=== PATIENT | male | born 1930 | race Caucasian/White ===

== ENCOUNTER → 2016-08-14 | Outpatient (CLI) | payer MEDICARE, BC ==
[2016-08-14 08:32] LABS: Basophils % (A) 1 %; CH 28.5; CHCM 32.1; Eosinophils # (A) 0.3 k/uL (0-0.7); Eosinophils % (A) 7 %; HCT 44.8 % (39.0-53.0); HDW 2.66; HGB 14.6 gm/dL (13.0-17.5); Luc # (Auto) 0.17; Luc % (Auto) 4; Lymphocytes # (A) 1.1 k/uL (1.0-4.8); Lymphocytes % (A) 23 %; MCHC 32.5 g/dL (31.0-37.0); MCV 89.1 fL (80.0-100.0); Mean Platelet Volume 6.4; Monocytes # (A) 0.4 k/uL (0-1.0); Monocytes % (A) 8 %; Neutrophils # (A) 2.7 k/uL (1.3-7.7); Neutrophils % (A) 58 %; RBC 5.02 m/uL (4.30-5.90); RDW 13.1 % (11.5-15.5); WBC 4.6 k/uL (3.8-10.6); WBC (Perox) 4.64
[2016-08-14 08:46] LABS: ALT 31 U/L (21-72); AST 29 U/L (17-59); Alkaline Phosphatase 66 U/L (38-126); Anion Gap 12 mmol/L; Blood Urea Nitrogen 25 mg/dL (9-20); Calcium 9.4 mg/dL (8.4-10.2); Carbon Dioxide 24 mmol/L (22-30); Chloride 107 mmol/L (98-107); Cholesterol 163 mg/dL (<200); Glucose 97 mg/dL (74-99); HDL Cholesterol 39 mg/dL (40-60); Non-African American GFR(MDRD) >60 (>60 ml/min/1.73 sqM); Potassium 4.3 mmol/L (3.5-5.1); Sodium 143 mmol/L (137-145); Total Bilirubin 1.2 mg/dL (0.2-1.3); Total Protein 7.4 g/dL (6.3-8.2); Triglycerides 112 mg/dL (<150)
== END | disposition home or self-care (01) ==
LOC: LABWHC1 07:25
PROVIDERS: ATTEND Internal Medicine
DX: E78.5 Hyperlipidemia, unspecified (principal); I10 Essential (primary) hypertension
CPT/HCPCS: 36415; 80053; 80061; 84439; 84443; 85025

== ENCOUNTER → 2016-12-13 | Outpatient (CLI) | payer MEDICARE, BC ==
[2016-12-13 10:09] LABS: CH 29.1; CHCM 31.8; HCT 46.5 % (39.0-53.0); HDW 2.43; HGB 14.3 gm/dL (13.0-17.5); MCH 28.3 pg (25.0-35.0); MCHC 30.8 g/dL (31.0-37.0); RBC 5.05 m/uL (4.30-5.90); RDW 14.5 % (11.5-15.5); WBC 4.6 k/uL (3.8-10.6)
[2016-12-13 10:37] LABS: Anion Gap 10 mmol/L; Blood Urea Nitrogen 24 mg/dL (9-20); Carbon Dioxide 23 mmol/L (22-30); Chloride 107 mmol/L (98-107); Non-African American GFR(MDRD) >60 (>60 ml/min/1.73 sqM); Potassium 4.2 mmol/L (3.5-5.1); Sodium 140 mmol/L (137-145)
== END | disposition home or self-care (01) ==
LOC: LABWHC1 09:36
PROVIDERS: ATTEND Internal Medicine Cardiovascular Disease
DX: Z01.812 Encounter for preprocedural laboratory examination (principal); I34.0 Nonrheumatic mitral (valve) insufficiency
CPT/HCPCS: 36415; 80051; 82565; 84520; 85027

== ENCOUNTER 2016-12-21 06:05 | Day surgery (SDC) | payer MEDICARE, BC ==
[2016-12-21] MEDS ORDERED: ALPRAZolam 0.25 MG TAB PO PRN (06:14)
[2016-12-21] MEDS ORDERED: ATORVASTATIN 80 MG TAB PO STA (06:14)
[2016-12-21] MEDS ORDERED: SODIUM CHLORIDE 0.9% 1,000 ML in EMPTY BAG 1 BAG IV ONE ×2 (06:14→15:02)
[2016-12-21] MEDS ORDERED: NITROGLYCERIN SL TABS 0.4 MG TAB SUBLINGUAL PRN (06:14)
[2016-12-21] MEDS ORDERED: ALPRAZolam 0.5 MG TAB PO PRN (06:14)
[2016-12-21] MEDS: BENZOCAINE SPRAY 1 SPRAY CAN MUCOUS MEM ONE ×2 (07:02→07:10)
[2016-12-21] MEDS ORDERED: fentaNYL (PF) 50 MCG/ML 2 ML AMP IVP ONE (07:10)
[2016-12-21] MEDS ORDERED: MIDAZOLAM 2 MG/2 ML VIAL IVP ONE (07:10)
[2016-12-21] MEDS ORDERED: LIDOCAINE 2% INJ 20 MG/ML SQ ONE (07:39)
[2016-12-21] MEDS ORDERED: SODIUM CHLORIDE 0.9% 1,000 ML IV ONE (07:42)
[2016-12-21] MEDS ORDERED: IOHEXOL 350 MG/ML 125ML BOTTLE INJ ONE (07:54)
[2016-12-21] MEDS ORDERED: RX INFO: IV CONTRAST WAS GIVEN 1 EACH MISC MISCELLANE PRN (08:04)
[2016-12-21] MEDS ORDERED: ATENOLOL 25 MG TAB PO SCH (10:15)
[2016-12-21] MEDS ORDERED: ISOSORBIDE MONONITRATE ER 30 MG TAB.ER.24H PO SCH (10:15)
[2016-12-21] MEDS ORDERED: ISOSORBIDE MONONITRATE ER 30 MG TAB.ER.24H PO STA (10:45)
[2016-12-21] MEDS ORDERED: ATENOLOL 25 MG TAB PO STA (10:46)
[2016-12-21 10:56] LABS: Potassium 4.2 mmol/L (3.5-5.1)
--- NOTE | 2016-12-21 11:31 | P.GSCN ---
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 Scruggs as his primary care physician with a known history of mitral valve regurgitation presented [facility] for increasing shortness of breath and chest pain. He described the chest pain as tightness which was localized to the center of his chest without any radiation, nausea, diaphoresis, or syncope. He states this chest pain would go away on its own, sometimes after belching. The shortness of breath episodes are intermittent, and tend to resolve on their own when patient rests. He states the increasing shortness of breath has started to limit his activity, previously he was a very active gentleman. He was recommended to undergo stress test and echocardiogram. His stress test was abnormal with demonstration of inferior wall [place] with mild LV dysfunction. His echocardiogram demonstrated moderate mitral regurgitation. He was recommended to undergo heart catheterization and transesophageal echocardiogram which he had this morning. Heart catheterization revealed a lesion in the LAD of approximately 70-80% stenosis. His LÓPEZ did demonstrate moderate mitral regurgitation with a flail P2 leaflet. Dr. Diaz was consulted for his recommendation of surgery versus stent and mitral clipping. Review of Systems 14 point review systems was completed and was negative except as noted. - Cardiovascular Reports as per HPI, Reports chest pain, Reports dyspnea on exertion, Reports shortness of breath - Respiratory Reports as per HPI, Reports dyspnea Past Medical History Past Medical History: Deep Vein Thrombosis (DVT), GERD/Reflux, Hyperlipidemia, Pulmonary Embolus (PE) Additional Past Medical History / Comment(s): HX of DVT leg & PE 2004 History of Any Multi-Drug Resistant Organisms: None Reported Past Surgical History: Appendectomy, Hernia Repair, Prostate Surgery Additional Past Surgical History / Comment(s): Hernia repair x4; Colonoscopy Past Anesthesia/Blood Transfusion Reactions: No Reported Reaction Smoking Status: Never smoker Past Alcohol Use History: None Reported Past Drug Use History: None Reported - Past Family History Mother Family Medical History: No Reported History Medications and Allergies Home Medications Medication Instructions Recorded Confirmed Type Finasteride [Proscar] 5 mg PO DAILY 12/19/16 12/21/16 History Gemfibrozil [Lopid] 600 mg PO AC-BID 12/19/16 12/21/16 History Lansoprazole [Prevacid] 30 mg PO DAILY 12/19/16 12/21/16 History Tamsulosin HCl [Flomax] 0.4 mg PO DAILY 12/19/16 12/21/16 History Allergies Allergy/AdvReac Type Severity Reaction Status Date / Time aspirin AdvReac Nausea Verified 12/19/16 13:50 Surgical - Exam Vital Signs Temp Pulse Resp BP Pulse Ox 98.3 F 64 20 140/65 98 12/21/16 06:35 12/21/16 06:35 12/21/16 06:35 12/21/16 06:35 12/21/16 06:35 - General well developed, well nourished, no distress, no pain - ENT decreased hearing - Neck no masses, no bruits, trachea midline - Respiratory Currently on room air saturation 96%. Respirations even, nonlabored. normal expansion, normal respiratory effort, clear to auscultation - Cardiovascular Normal sinus rhythm on telemetry. Palpable pulses bilaterally. No edema present. Patient does have varicosities in bilateral lower extremities. Rhythm: regular Heart Sounds: normal: S1, S2 - Abdomen Abdomen: soft, non tender, bowel sounds - Genitourinary Deferred - Rectum Deferred - Integumentary no rash - Neurologic normal coordination, normal sensation - Psychiatric oriented to time, oriented to person, oriented to place, speech is normal, memory intact Results - Labs 12/21/16 10:32 Diabetes panel 12/21/16 Range/Units 10:32 Potassium 4.2 (3.5-5.1) mmol/L Pituitary panel 12/21/16 Range/Units 10:32 Potassium 4.2 (3.5-5.1) mmol/L Adrenal panel 12/21/16 Range/Units 10:32 Potassium 4.2 (3.5-5.1) mmol/L Assessment and Plan (1) Hyperlipidemia Status: Acute (2) Moderate mitral regurgitation Status: Acute (3) Single vessel coronary artery disease Status: Acute (4) History of DVT (deep vein thrombosis) Status: Acute (5) History of pulmonary embolism Status: Acute Plan: The patient was seen and examined at the bedside with family present. Chart/ diagnostics were reviewed. The case was discussed with Dr. Diaz. Discussion was had with the patient and his family regarding the options of open heart surgery to fix his mitral valve and bypass his LAD versus stenting the LAD and sending the patient for mitral valve clipping. Questions were answered. The patient was like to think about it and discuss with his family before making a decision. A follow-up appointment will be made with Dr. Diaz for further discussion and planning. Thank you Dr. Stout for this consult. We look forward to working with you in the care of your patient. If there are any questions please do not hesitate to contact us. Time with Patient: Greater than 30 <Pablo Diaz R - Last Filed: 12/22/16 08:20> Surgical - Exam Vital Signs Temp Pulse Resp BP Pulse Ox 98.3 F 64 20 140/65 98 12/21/16 06:35 12/21/16 06:35 12/21/16 06:35 12/21/16 06:35 12/21/16 06:35 Results - Labs 12/22/16 05:57 12/22/16 05:57 Abnormal Lab Results - Last 24 Hours (Table) 12/22/16 12/22/16 Range/Units 05:57 05:57 RBC 4.29 L (4.30-5.90) m/uL Hgb 12.4 L (13.0-17.5) gm/dL Hct 38.3 L (39.0-53.0) % Lymphocytes # 0.9 L (1.0-4.8) k/uL Chloride 109 H (98-107) mmol/L BUN 22 H (9-20) mg/dL Diabetes panel 12/21/16 12/22/16 Range/Units 10:32 05:57 Sodium 141 (137-145) mmol/L Potassium 4.2 4.0 (3.5-5.1) mmol/L Chloride 109 H (98-107) mmol/L Carbon Dioxide 23 (22-30) mmol/L BUN 22 H (9-20) mg/dL Creatinine 0.83 (0.66-1.25) mg/dL Glucose 89 (74-99) mg/dL Calcium 8.7 (8.4-10.2) mg/dL Calcium panel 12/22/16 Range/Units 05:57 Calcium 8.7 (8.4-10.2) mg/dL Pituitary panel 12/21/16 12/22/16 Range/Units 10:32 05:57 Sodium 141 (137-145) mmol/L Potassium 4.2 4.0 (3.5-5.1) mmol/L Chloride 109 H (98-107) mmol/L Carbon Dioxide 23 (22-30) mmol/L BUN 22 H (9-20) mg/dL Creatinine 0.83 (0.66-1.25) mg/dL Glucose 89 (74-99) mg/dL Calcium 8.7 (8.4-10.2) mg/dL Adrenal panel 12/21/16 12/22/16 Range/Units 10:32 05:57 Sodium 141 (137-145) mmol/L Potassium 4.2 4.0 (3.5-5.1) mmol/L Chloride 109 H (98-107) mmol/L Carbon Dioxide 23 (22-30) mmol/L BUN 22 H (9-20) mg/dL Creatinine 0.83 (0.66-1.25) mg/dL Glucose 89 (74-99) mg/dL Calcium 8.7 (8.4-10.2) mg/dL Assessment and Plan Plan: Films reviewed with Dr. Stout. Patient examined and chart reviewed. Agree with evaluation and assessment as documented by [facility]INE DEPUT[facility]. Met with patient, and son and had long discussion on options for treatment. Standard of care would be Mitral Valve Repair with CABG (WASHBURN to LAD ). Alternative treatment would be stenting of LAD with subsequent evaluation for mitral clip repair of mitral valve. After protracted discussion and thought, patient has decided to proceed with stenting of LAD and then review options based on clinical response. Discussed patient decisions with Dr. Stout.
--- NOTE | 2016-12-21 13:52 | P.TEE ---
Indications for Procedure(s): Date of Procedure: 12/21/16 Preoperative Diagnosis: Mitral regurgitation Postoperative Diagnosis: Severe mitral regurgitation Procedure(s) Performed: After obtaining informe transesophageal echocard in left lateral position using an Omnipaque prob. Local and IV sedati using Xylocaine spray 2 mg of Versed and 25 g of fentan. Total conscious sedation time was 15 minutes. Patient tolerated the without any obviousimmediate complications. Description of Procedure(s): Mitral valve shows flail posterior leaflet with Severe anteriorly directedmitral regurgitation. There is systolic flow reversal within the pulmonary vein Aortic valve is a 3 odalis there is no evidence of aortic stenosis or regurgitation. Mild tricuspid regurgita Left ventricle appears dilated with ejection fraction [id number] Left atrium appears enlarged Right atrium and right ventricle Appear within normal limits Part 2 shows moderate ath There is no evidence of [id number] shuntwith color flow Doppler or right to left shunt with saline contrast study Conclusions: Severe mitral regurgitation secondary to flail posterior mitral Ejection fraction of 50-55% .
--- NOTE | 2016-12-21 13:58 | P.OP ---
Date of Procedure: 12/21/16 Preoperative Diagnosis: Unstable angina Mitral regurgitation Postoperative Diagnosis: Coronary artery disease Mitral regurgitation Procedure(s) Performed: Implants: Anesthesia: MAC (Conscious sedation time 15 minutes) Indications for Procedure: Unstable angina Mitral regurgitation Operative Findings: Left ventricle end-diastolic pressure is 14 mm. tthere is no gradient acros Left ventricle appears dilated and shows severe mitral regurgitatio Angiographic data; Left main coronary preeti and is free of stenosis. Left anterior descending shows 70-80% stenosisin the proximal part. Circumflex coronary preeti is free of stenosis Right coronary artery is a large dominant ves and is free of stenosis Conclusions: 1. Severe mitral regurgita 2. Single-vessel coronary Plan: I have consulted cardiothoracic sx for mitral valve repairand bypass surgery if patient is going to have mitral valve clip he will first have angioplasty of the LAD. Description of Procedure: After obtaining informed con left heart catheterization coronary angiogram and LV gram performed where the right femoral a using standard Subhash catheters Patient tolerated the without obvious immediate altercations. A femoral angiogram was and Angio-Seal was dep for hemostasis
[2016-12-21] MEDS: CLOPIDOGREL 75 MG TAB PO SCH (15:14)
[2016-12-21 17:55] VITALS: BMI 29.8
[2016-12-21] MEDS: ASPIRIN 325 MG TAB PO STA (18:17)
[2016-12-21] MEDS: GEMFIBROZIL 600 MG TAB PO SCH (18:29)
[2016-12-21] MEDS: SODIUM CHLORIDE 0.9% 1,000 ML IV SCH ×2 (18:29→19:48)
[2016-12-21] MEDS: ATORVASTATIN 80 MG TAB PO STA (18:32)
[2016-12-21] MEDS: TAMSULOSIN 0.4 MG CAP.ER.24H PO SCH (20:34)
[2016-12-21] MEDS: FINASTERIDE 5 MG TAB PO SCH (20:34)
[2016-12-22 05:54] LABS: Glucose,Whole Blood 96 mg/dL (75-99)
[2016-12-22] MEDS: CLOPIDOGREL 75 MG TAB PO SCH (06:04)
[2016-12-22] MEDS: PANTOPRAZOLE 40 MG TABLET PO SCH (06:04)
[2016-12-22] MEDS ORDERED: ATORVASTATIN 80 MG TAB PO STA (06:08)
[2016-12-22] MEDS ORDERED: ASPIRIN 325 MG TAB PO STA (06:08)
[2016-12-22] MEDS: ASPIRIN 325 MG TAB PO STA (06:09)
[2016-12-22] MEDS: ATORVASTATIN 80 MG TAB PO STA (06:09)
[2016-12-22 06:41] LABS: Basophils % (A) 1 %; CH 29.3; Eosinophils # (A) 0.2 k/uL (0-0.7); Eosinophils % (A) 3 %; HCT 38.3 % (39.0-53.0); HDW 2.52; HGB 12.4 gm/dL (13.0-17.5); Luc % (Auto) 2; Lymphocytes # (A) 0.9 k/uL (1.0-4.8); Lymphocytes % (A) 16 %; MCH 28.9 pg (25.0-35.0); MCHC 32.3 g/dL (31.0-37.0); MCV 89.3 fL (80.0-100.0); Mean Platelet Volume 6.9; Monocytes # (A) 0.3 k/uL (0-1.0); Monocytes % (A) 6 %; Neutrophils % (A) 73 %; RBC 4.29 m/uL (4.30-5.90); RDW 14.5 % (11.5-15.5); WBC 5.5 k/uL (3.8-10.6); WBC (Perox) 5.58
[2016-12-22 06:55] LABS: Anion Gap 9 mmol/L; Blood Urea Nitrogen 22 mg/dL (9-20); Calcium 8.7 mg/dL (8.4-10.2); Carbon Dioxide 23 mmol/L (22-30); Chloride 109 mmol/L (98-107); Glucose 89 mg/dL (74-99); Non-African American GFR(MDRD) >60 (>60 ml/min/1.73 sqM); Sodium 141 mmol/L (137-145)
[2016-12-22] MEDS ORDERED: LIDOCAINE 2% INJ 20 MG/ML (20 ML MDV) ONE (07:10)
[2016-12-22] MEDS ORDERED: fentaNYL (PF) 50 MCG/ML 2 ML AMP ONE (07:18)
[2016-12-22] MEDS ORDERED: diphenhydrAMINE 50 MG/ML 1 ML VIAL ONE (07:18)
[2016-12-22] MEDS ORDERED: VERAPAMIL 2.5 MG/ML 2 ML AMP ONE (07:24)
[2016-12-22] MEDS ORDERED: SODIUM CHLORIDE 0.9% 1,000 ML IV ONE ×2 (07:30→08:10)
[2016-12-22] MEDS ORDERED: SODIUM CHLORIDE 0.9% 500 ML IV ONE ×2 (07:30→08:10)
[2016-12-22] MEDS ORDERED: diphenhydrAMINE 50 MG/ML 1 ML VIAL IVP ONE (08:09)
[2016-12-22] MEDS ORDERED: fentaNYL (PF) 50 MCG/ML 2 ML AMP IV ONE (08:09)
[2016-12-22] MEDS ORDERED: CLOPIDOGREL 75 MG TAB ONE (08:09)
[2016-12-22] MEDS ORDERED: BIVALIRUDIN BOLUS 250 MG/50 ML IV ONE (08:10)
[2016-12-22] MEDS ORDERED: BIVALIRUDIN 250 MG in SODIUM CHLORIDE 0.9% 50 ML IV ONE (08:11)
[2016-12-22] MEDS ORDERED: CLOPIDOGREL 75 MG TAB PO ONE (08:16)
[2016-12-22] MEDS ORDERED: NITROGLYCERIN 1000MCG/10ML SYRINGE INTRACORON ONE (08:18)
[2016-12-22] MEDS ORDERED: IOHEXOL 350 MG/ML 125ML BOTTLE INJ ONE (08:30)
[2016-12-22] MEDS ORDERED: ZOLPIDEM 5 MG TAB PO PRN (08:36)
[2016-12-22] MEDS ORDERED: MAG HYDROX/AL HYDROX/SIMETH 30 ML CUP PO PRN (08:36)
[2016-12-22] MEDS ORDERED: NITROGLYCERIN SL TABS 0.4 MG TAB SUBLINGUAL PRN (08:36)
[2016-12-22] MEDS ORDERED: RX INFO: IV CONTRAST WAS GIVEN 1 EACH MISC MISCELLANE PRN (08:36)
[2016-12-22] MEDS ORDERED: ATROPINE SULFATE 0.1 MG/ML 10ML SYRINGE IV PRN (08:36)
[2016-12-22] MEDS ORDERED: SODIUM CHLORIDE 0.9% 1,000 ML IV SCH (08:45)
[2016-12-22] MEDS: SODIUM CHLORIDE 0.9% 1,000 ML IV SCH (09:37)
[2016-12-22] MEDS: FINASTERIDE 5 MG TAB PO SCH (19:33)
[2016-12-22] MEDS: TAMSULOSIN 0.4 MG CAP.ER.24H PO SCH (19:33)
--- NOTE | 2016-12-22 20:16 | PTCA ---
PERCUTANEOUSTRANS CORORONARY ANGIOGRAPHY Mr. Neely is an 86-year-old male who has been followed by Dr. Stout. Has a known history of mitral regurgitation as well as a history of hypertension and hyperlipidemia, who presented with symptoms of chest pain and dyspnea. Underwent cardiac catheterization and was found to have significant mitral regurgitation in addition to the severe stenosis involving the proximal LAD. The patient was evaluated by the surgical team and recommendation was made to revascularize the LAD percutaneously. The procedure, risks and complications were discussed with the patient who is in full understanding and agreement. PROCEDURE: The patient was brought to the semiconductor lab technician in fasting semi sedated state after receiving fentanyl and Benadryl and achieving moderate conscious sedated state. Using Xylocaine anesthesia, in the Seldinger technique, a 6 Lao sheath was introduced in the right radial artery. Selective left coronary angiography was performed using 6 Lao, 3.5 bend FL guiding catheter. After cannulating the left main a 0.014 mm wire was advanced across the vessel and positioned in the second diagonal branch. Subsequently, a 0.014 Whisper J-wire was advanced in the LAD and positioned distally. A 3.25 x 50 mm Xience Alpine stent was advanced over the Whisper J-wire, positioned and deployed and dilated at 16 atmospheres. After the last inflation, after appropriate wait, the balloon and the guidewire were withdrawn back into the guiding catheter. Images were obtained and repeated. Those images reveal stable successful stenting. At that point, the guiding catheter, the balloon, and guidewire were removed. The sheath was removed. Hemostasis was obtained with deployment of a TR band. There were no immediate complications. The patient was returned to the room in stable condition. Of note, the patient had no chest discomfort or significant EKG changes with the inflations. He received Angiomax per protocol as was oral loading dose of clopidogrel. RESULTS: Successful stenting of the proximal LAD with reduction of stenosis from 90% to 0% RECOMMENDATIONS: The patient will be continued on aspirin, Plavix, beta blockers and simvastatin. The importance of dual antiplatelet treatment were discussed with the patient and his family who are in full understanding and agreement. Duration of procedure: 48 minutes MMODL / IJN: [id number] /
--- NOTE | 2016-12-22 20:22 | LTR ---
Date: Dear Dr. Scruggs: I had the pleasure of performing coronary angioplasty and stenting on Mr. Neely at [facility] on december and a full copy of procedure note will be forwarded to you. In brief, he underwent successful stenting of the proximal LAD using drug eluting stent. I am hopeful that this procedure will stabilize his status. Thank you again for allowing me to participate in his care. Please feel free to call for any questions. Sincerely yours, MMISREAL / LIZBETHN: [id number] /
[2016-12-22] MEDS: GEMFIBROZIL 600 MG TAB PO SCH (20:23)
[2016-12-23 03:06] LABS: Blood Urea Nitrogen 16 mg/dL (9-20); Calcium 8.7 mg/dL (8.4-10.2); Carbon Dioxide 22 mmol/L (22-30); Chloride 111 mmol/L (98-107); Glucose 98 mg/dL (74-99); Non-African American GFR(MDRD) >60 (>60 ml/min/1.73 sqM); Potassium 3.6 mmol/L (3.5-5.1)
[2016-12-23 03:08] LABS: Anion Gap 10 mmol/L; Sodium 143 mmol/L (137-145)
[2016-12-23] MEDS ORDERED: METOPROLOL TARTRATE 25 MG TAB PO STA (03:35)
[2016-12-23] MEDS: PANTOPRAZOLE 40 MG TABLET PO SCH (06:33)
[2016-12-23] MEDS: CLOPIDOGREL 75 MG TAB PO SCH (09:20)
[2016-12-23] MEDS: ATORVASTATIN 40 MG TAB PO SCH (09:20)
[2016-12-23] MEDS: ASPIRIN 81 MG CHEW PO SCH (09:20)
[2016-12-23] MEDS: METOPROLOL TARTRATE 25 MG TAB PO SCH ×2 (09:20→17:50)
[2016-12-23] MEDS ORDERED: HEPARIN SODIUM,PORCINE 5,000 UNIT/ML 1 ML VIAL IV PRN (10:58)
--- NOTE | 2016-12-23 11:07 | P.PN ---
Subjective Principal diagnosis: Mitral stenosis and LAD stent This is an 86-year-old gentleman who follows with Dr. Barber in the office. He has history of mitral regurgitation hyperlipidemia, he was admitted to the hospital to undergo a transesophageal echocardiogram as well as cardiac catheterization. LÓPEZ revealed severe mitral regurgitation. Cardiac catheterization revealed stenosis of the LAD and patient underwent angioplasty with stent placement of the LAD yesterday. Through the night last night, patient went into atrial fibrillation with a rapid ventricular response around 3 :00 in the morning. EKG showed A. fib with RVR with incomplete left bundle branch block pattern. He was given an additional dose of beta laurence, this morning is back in normal sinus rhythm. Blood pressure 116/60 with a heart rate in the 60s. Sodium 143, potassium 3.6, BUN 16, creatinine 0.7. Magnesium 2.0. At the time of my examination this morning, patient feels well, denies any chest discomfort, no difficulty breathing, no palpitations. Did complain of some mild abdominal discomfort. He does state that at times he feels a quivering sensation in his upper abdominal area. No prior diagnosis of atrial fibrillation. He did have a discussion with the patient and his son who is at bedside regarding the need for anticoagulation for stroke prevention, we will start him on a heparin drip without bolus and initiate Coumadin. According to the son, patient has been on Coumadin in the past for history of pulmonary embolism. Objective - Vital Signs Vital signs: Vital Signs Temp 97.6 F 12/23/16 09:41 Pulse 57 L 12/23/16 09:41 Resp 17 12/23/16 09:41 BP 115/62 12/23/16 09:41 Pulse Ox 96 12/23/16 09:41 Intake & Output 12/22/16 12/23/16 12/23/16 18:59 06:59 18:59 Intake Total 1571.5 375 240 Output Total 580 Balance 1571.5 -205 240 Weight 101.1 kg Intake: IV 1311.5 375 Sodium Chloride 0.9% 1, 375 000 ml @ 75 mls/hr IV . [id number] TRIPP Rx#:[id number] Oral 260 240 Output: Urine 580 Other: # Voids 1 1 - Exam PHYSICAL EXAMINATION: HEENT: Head is atraumatic, normocephalic. Pupils equal, round. Neck is supple. There is no elevated jugular venous pressure. HEART EXAMINATION: Heart S1 and S2 1 systolic murmur is heard. CHEST EXAMINATION: Lungs are clear to auscultation and precussion. No chest wall tenderness is noted on palpation or with deep breathing. ABDOMEN: Soft, nontender. Bowel sounds are heard. No organomegaly noted. EXTREMITIES: 2+ peripheral pulses with no evidence of peripheral edema and no calf tenderness noted. Right radial site clean and dry, good distal pulse, no hematoma. NEUROLOGIC patient is awake, alert and oriented -3. . - Labs CBC & Chem 7: 12/22/16 05:57 12/23/16 02:47 Labs: Abnormal Lab Results - Last 24 Hours (Table) 12/23/16 Range/Units 02:47 Chloride 111 H (98-107) mmol/L Assessment and Plan (1) Severe mitral regurgitation Status: Acute (2) Presence of stent in LAD coronary artery Status: Acute (3) Paroxysmal a-fib Status: Acute (4) History of pulmonary embolism Status: Acute (5) Hyperlipidemia Status: Acute Plan: From cardiology's perspective, we will start the patient on IV heparin drip without bolus, give 5 mg of Coumadin today. Continue aspirin and Plavix. DNP note has been reviewed, I agree with a documented findings and plan of care. Patient was seen and examined.
[2016-12-23 11:24] LABS: Basophils % (A) 1 %; CH 29.2; CHCM 32.5; Eosinophils # (A) 0.2 k/uL (0-0.7); Eosinophils % (A) 4 %; HCT 42.2 % (39.0-53.0); HDW 2.54; HGB 13.5 gm/dL (13.0-17.5); Luc # (Auto) 0.09; Luc % (Auto) 2; Lymphocytes % (A) 20 %; MCH 28.9 pg (25.0-35.0); MCV 90.4 fL (80.0-100.0); Monocytes # (A) 0.4 k/uL (0-1.0); Monocytes % (A) 8 %; Neutrophils # (A) 3.4 k/uL (1.3-7.7); Neutrophils % (A) 66 %; RBC 4.67 m/uL (4.30-5.90); RDW 14.6 % (11.5-15.5); WBC 5.2 k/uL (3.8-10.6); WBC (Perox) 5.87
[2016-12-23 11:37] LABS: INR 1.2 (<1.2); Prothrombin Time 11.7 sec (9.0-12.0)
--- NOTE | 2016-12-23 11:52 | P.PN ---
Progress Note - Text Patient has paroxysmal A. fib with RVR , underlying CAD status post stenting. On dual antiplatelet therapy status post stenting. High VIDAL VASC score. Previous history of pulmonary embolism suggest in-hospital initiation of Coumadin and discharge home at an INR of 2 while continuing dual antiplatelet therapy. IV heparin. Follow-up with Dr. Barber
[2016-12-23] MEDS: HEPARIN SODIUM,PORCINE/D5W PMX 25,000 UNIT in DEXTROSE/WATER 1 500ML.BAG IV SCH (12:35)
--- NOTE | 2016-12-23 13:59 | LTR ---
Date: Dear Dr. Scruggs: I performed coronary angioplasty and stenting on Mr. Neely at [facility] on the 22 of December and a full copy of the procedure will be forwarded to you. In brief, he underwent successful stenting of the proximal LAD using drug eluding stent. I am hopeful that this procedure will stabilize his status. Thank you, again, for allowing me to participate in this patient's care. Please feel free to call if you have any questions. Sincerely, ANTHONY / GARFIELD: [id number] /
[2016-12-23] MEDS: TAMSULOSIN 0.4 MG CAP.ER.24H PO SCH (17:50)
[2016-12-23] MEDS: WARFARIN 5 MG TAB PO ONE ×2 (17:50→17:52)
[2016-12-23] MEDS: FINASTERIDE 5 MG TAB PO SCH (17:50)
[2016-12-24 03:36] LABS: Basophils % (A) 1 %; CH 29.5; CHCM 33.3; Eosinophils # (A) 0.3 k/uL (0-0.7); Eosinophils % (A) 7 %; HCT 38.8 % (39.0-53.0); HDW 2.57; HGB 12.8 gm/dL (13.0-17.5); Luc # (Auto) 0.09; Luc % (Auto) 2; Lymphocytes # (A) 0.9 k/uL (1.0-4.8); Lymphocytes % (A) 21 %; MCH 29.3 pg (25.0-35.0); MCHC 32.9 g/dL (31.0-37.0); Mean Platelet Volume 7.5; Monocytes # (A) 0.3 k/uL (0-1.0); Monocytes % (A) 7 %; Neutrophils # (A) 2.6 k/uL (1.3-7.7); Neutrophils % (A) 62 %; RBC 4.36 m/uL (4.30-5.90); RDW 14.3 % (11.5-15.5); WBC 4.2 k/uL (3.8-10.6); WBC (Perox) 4.58
[2016-12-24 03:44] LABS: INR 1.2 (<1.2); Partial Thromboplastin Time 40.4 sec (22.0-30.0); Prothrombin Time 12.2 sec (9.0-12.0)
[2016-12-24] MEDS: HEPARIN SODIUM,PORCINE/D5W PMX 25,000 UNIT in DEXTROSE/WATER 1 500ML.BAG IV SCH ×2 (06:30→21:41)
[2016-12-24] MEDS: PANTOPRAZOLE 40 MG TABLET PO SCH (06:30)
[2016-12-24] MEDS: CLOPIDOGREL 75 MG TAB PO SCH (08:40)
[2016-12-24] MEDS: ATORVASTATIN 40 MG TAB PO SCH (08:40)
[2016-12-24] MEDS: ASPIRIN 81 MG CHEW PO SCH (08:40)
[2016-12-24] MEDS: METOPROLOL TARTRATE 25 MG TAB PO SCH ×2 (08:40→17:08)
--- NOTE | 2016-12-24 14:36 | P.PN ---
Subjective Patient is doing well. He is sitting up comfortably in a chair. He started experiencing atrial fibrillation with RVR while in the hospital and has high VIDAL VASC or did he recently underwent coronary stenting. His access sites have healed well. On examination Heart rate in the 50s and 60s he is back in sinus rhythm temperature 98.1F blood pressure 120/62 mmHg and neck examination is normal heart sounds reveal murmur of mitral regurgitation Extremity is warm no edema Impression Valvular heart disease with mitral regurgitation awaiting reevaluation for intervention/surgery. He has a history of mitral leaflet prolapse with regurgitation Coronary stenting to the LAD is sustained doing well Access for atrial fibrillation, VIDAL VASC score of greater than 3 Suggest Continue cardiac medications IV heparin and Coumadin. Stop IV heparin when INR is greater than 2 Continue dual antiplatelet therapy Patient will need long-term anticoagulation for stroke prevention Continue Coumadin 5 mg by mouth daily Daily PT/INR Objective - Vital Signs Vital signs: Vital Signs Temp 98.1 F 12/24/16 08:00 Pulse 54 L 12/24/16 12:00 Resp 18 12/24/16 12:00 BP 120/62 12/24/16 12:00 Pulse Ox 97 12/24/16 12:00 Intake & Output 12/23/16 12/24/16 12/24/16 18:59 06:59 18:59 Intake Total 980 530.667 Balance 980 530.667 Weight 100.9 kg Intake: Intake, IV Titration 40 530.667 Amount Heparin Sodium,Porcine/ 40 420.667 D5w Pmx 25,000 unit In Dextrose/Water 1 500ml. bag @ 9.89 UNITS/KG/HR 19 .99 mls/hr IV .Q24H [facility] Rx#:[id number] Sodium Chloride 0.9% 1, 110 000 ml As IV .STK-MED ONE Rx#:[id number] Oral 940 Other: Voiding Method Toilet Toilet # Voids 3 2 - Labs CBC & Chem 7: 12/24/16 03:23 12/23/16 02:47 Labs: Abnormal Lab Results - Last 24 Hours (Table) 12/24/16 12/24/16 12/24/16 Range/Units 03:23 03:23 10:56 Hgb 12.8 L (13.0-17.5) gm/dL Hct 38.8 L (39.0-53.0) % Plt Count 144 L (150-450) k/uL Lymphocytes # 0.9 L (1.0-4.8) k/uL PT 12.2 H (9.0-12.0) sec INR 1.2 H (<1.2) APTT 40.4 H 52.9 H (22.0-30.0) sec
[2016-12-24] MEDS: TAMSULOSIN 0.4 MG CAP.ER.24H PO SCH (17:07)
[2016-12-24] MEDS: FINASTERIDE 5 MG TAB PO SCH (17:08)
[2016-12-24] MEDS ORDERED: WARFARIN 5 MG TAB PO SCH (18:00)
[2016-12-25 05:52] LABS: Basophils % (A) 1 %; CH 29.6; CHCM 33.6; Eosinophils # (A) 0.3 k/uL (0-0.7); Eosinophils % (A) 5 %; HCT 39.7 % (39.0-53.0); HDW 2.64; HGB 12.8 gm/dL (13.0-17.5); Luc % (Auto) 2; Lymphocytes # (A) 0.8 k/uL (1.0-4.8); Lymphocytes % (A) 18 %; MCH 28.6 pg (25.0-35.0); MCHC 32.3 g/dL (31.0-37.0); MCV 88.4 fL (80.0-100.0); Monocytes # (A) 0.3 k/uL (0-1.0); Monocytes % (A) 7 %; Neutrophils # (A) 3.1 k/uL (1.3-7.7); Neutrophils % (A) 67 %; RBC 4.49 m/uL (4.30-5.90); RDW 14.5 % (11.5-15.5); WBC 4.7 k/uL (3.8-10.6); WBC (Perox) 5.24
[2016-12-25 06:10] LABS: INR 1.3 (<1.2); Partial Thromboplastin Time 73.3 sec (22.0-30.0); Prothrombin Time 12.9 sec (9.0-12.0)
[2016-12-25 06:11] VITALS: RESP 18
[2016-12-25] MEDS: PANTOPRAZOLE 40 MG TABLET PO SCH (06:46)
[2016-12-25] MEDS: CLOPIDOGREL 75 MG TAB PO SCH (07:54)
[2016-12-25] MEDS: ASPIRIN 81 MG CHEW PO SCH (07:55)
[2016-12-25] MEDS: METOPROLOL TARTRATE 25 MG TAB PO SCH (07:55)
[2016-12-25] MEDS: ATORVASTATIN 40 MG TAB PO SCH (07:55)
[2016-12-25 08:10] VITALS: BP 128/60; PULSE 72; TEMP 97.1
--- NOTE | 2016-12-25 10:12 | P.PN ---
Subjective Patient is doing well. She is sitting up in a chair in sinus rhythm maintains sinus rhythm no chest discomfort no shortness of breath. He had atrial fibrillation postprocedure and he was started on anticoagulation. Since he was on dual antiplatelet therapy started him on Coumadin 5 mg by mouth daily. Today his INR is still subtherapeutic but he has now been sinus rhythm since yesterday. 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 Barber on . That they PT/INR will be checked. Hold off on Lovenox since he is on triple therapy Atorvastatin 40 mg by mouth daily hold gemfibrozil Continue beta blockers Follow-up with Dr. Barber on PT/INR checked that day Objective - Vital Signs Vital signs: Vital Signs Temp 97.1 F L 12/25/16 08:00 Pulse 72 12/25/16 08:00 Resp 18 12/25/16 08:00 BP 128/60 12/25/16 08:00 Pulse Ox 96 12/25/16 08:32 Intake & Output 12/24/16 12/25/16 12/25/16 18:59 06:59 18:59 Intake Total 774 1173.370 240 Output Total 401 1 Balance 373 1172.370 240 Weight 101 kg Intake: IV 217 heparin 217 Intake, IV Titration 140 993.370 Amount Heparin Sodium,Porcine/ 713.370 D5w Pmx 25,000 unit In Dextrose/Water 1 500ml. bag @ 9.89 UNITS/KG/HR 19 .99 mls/hr IV .Q24H [facility] Rx#:[id number] Sodium Chloride 0.9% 1, 140 160 000 ml As IV .STK-MED ONE Rx#:[id number] Sodium Chloride 0.9% 1, 120 000 ml As IV .STK-MED ONE Rx#:[id number] Oral 417 180 240 Output: Urine 400 Stool 1 1 Other: Voiding Method Toilet # Voids 2 - Labs CBC & Chem 7: 12/25/16 05:23 12/23/16 02:47 Labs: Abnormal Lab Results - Last 24 Hours (Table) 12/24/16 12/25/16 12/25/16 Range/Units 10:56 05:23 05:23 Hgb 12.8 L (13.0-17.5) gm/dL Lymphocytes # 0.8 L (1.0-4.8) k/uL PT 12.9 H (9.0-12.0) sec INR 1.3 H (<1.2) APTT 52.9 H 73.3 H (22.0-30.0) sec
== END 2016-12-25 10:51 | disposition home or self-care (01) ==
LOC: CATHCVL 06:05 → 6SEL 07:58 → CATHCVL 12-25 10:51
PROVIDERS: ATTEND Internal Medicine Cardiovascular Disease
DX: I25.110 Atherosclerotic heart disease of native coronary artery with unstable angina pectoris (principal); I34.0 Nonrheumatic mitral (valve) insufficiency; I10 Essential (primary) hypertension; K21.9 Gastro-esophageal reflux disease without esophagitis; E78.5 Hyperlipidemia, unspecified; I44.7 Left bundle-branch block, unspecified; I48.0 Paroxysmal atrial fibrillation; Z79.02 Long term (current) use of antithrombotics/antiplatelets; Z79.899 Other long term (current) drug therapy; Z88.6 Allergy status to analgesic agent; Z86.718 Personal history of other venous thrombosis and embolism; Z86.711 Personal history of pulmonary embolism
CPT/HCPCS: 94760; 93312; 93320; 93325; 93458; 85347; 80048 ×2; 83735 ×2; 84132; 85025 ×4; 85610 ×3; 85730 ×3; 99152 ×2; C9600; C1769 ×5; C1760; C1887; C1894 ×2; C1874; J2001; S0138 ×3; J2250; J1200; J1644; J3010 ×2; J0583; Q9967 ×2

== ENCOUNTER → 2017-06-11 | Outpatient (CLI) | payer MEDICARE, BC ==
[2017-06-11 11:19] LABS: Anion Gap 11 mmol/L; Blood Urea Nitrogen 27 mg/dL (9-20); Carbon Dioxide 26 mmol/L (22-30); Chloride 106 mmol/L (98-107); Sodium 143 mmol/L (137-145)
[2017-06-11 11:24] LABS: Potassium 4.5 mmol/L (3.5-5.1)
== END | disposition home or self-care (01) ==
LOC: LABWHC1 10:25
PROVIDERS: ATTEND Internal Medicine Cardiovascular Disease
DX: I50.32 Chronic diastolic (congestive) heart failure (principal)
CPT/HCPCS: 36415; 80051; 82565; 84520

== ENCOUNTER → 2017-10-10 | Outpatient (CLI) | payer MEDICARE, BC ==
[2017-10-10 07:59] LABS: Potassium 4.5 mmol/L (3.5-5.1)
== END | disposition home or self-care (01) ==
LOC: LABWHC1 07:04
PROVIDERS: ATTEND Internal Medicine Cardiovascular Disease
DX: E78.2 Mixed hyperlipidemia (principal)
CPT/HCPCS: 36415; 80051; 80061; 82565; 84450; 84460; 84520

== ENCOUNTER 2017-11-21 19:02 | Emergency (ER) | payer MEDICARE, BC ==
[2017-11-21 19:17] VITALS: TEMP 97.7
--- NOTE | 2017-11-21 19:51 | ED ---
General Adult HPI - General Chief complaint: Urogenital Stated complaint: blood in urine Time Seen by Provider: 11/21/17 19:15 Source: patient, family, RN notes reviewed Mode of arrival: wheelchair Limitations: physical limitation - History of Present Illness Initial comments: This is an 87-year-old male who presents emergency Department with a 2 hour history of hematuria. Patient states he is on Coumadin. Patient denies any pain patient denies any dysuria patient denies any urinary frequency. Patient states he just started having hematuria about 2 hours ago and it continues at this time. Patient states he has come the level checked in the middle of October and it was fine. Patient denies having had similar symptoms in the past. - Related Data Home Medications Medication Instructions Recorded Confirmed Finasteride [Proscar] 5 mg PO DAILY 12/19/16 11/21/17 Lansoprazole [Prevacid] 30 mg PO DAILY 12/19/16 11/21/17 Tamsulosin HCl [Flomax] 0.4 mg PO DAILY 12/19/16 11/21/17 Previous Rx's Medication Instructions Recorded Aspirin 81 mg PO DAILY #90 chewable 12/25/16 Atorvastatin [Lipitor] 40 mg PO DAILY #90 tablet 12/25/16 Clopidogrel [Plavix] 75 mg PO DAILY #90 tablet 12/25/16 Metoprolol Tartrate 25 mg PO BID #180 tab 12/25/16 Warfarin Sodium [Coumadin] 5 mg PO DAILY@1800 #30 tablet 12/25/16 Sulfamethox-Tmp 800-160Mg [Bactrim 1 each PO Q12HR #14 tab 11/21/17 DS 800-160 mg] Allergies Allergy/AdvReac Type Severity Reaction Status Date / Time aspirin AdvReac Nausea Verified 11/21/17 19:53 Review of Systems ROS Statement: Those systems with pertinent positive or pertinent negative responses have been documented in the HPI. ROS Other: All systems not noted in ROS Statement are negative. Past Medical History Past Medical History: Deep Vein Thrombosis (DVT), GERD/Reflux, Hyperlipidemia, Pulmonary Embolus (PE) Additional Past Medical History / Comment(s): HX of DVT leg & PE 2003 History of Any Multi-Drug Resistant Organisms: None Reported Past Surgical History: Appendectomy, Heart Catheterization With Stent, Hernia Repair, Prostate Surgery Additional Past Surgical History / Comment(s): Hernia repair x4; Colonoscopy Past Anesthesia/Blood Transfusion Reactions: No Reported Reaction Past Psychological History: No Psychological Hx Reported Smoking Status: Never smoker Past Alcohol Use History: None Reported Past Drug Use History: None Reported - Past Family History Mother Family Medical History: No Reported History General Exam - General Exam Comments Initial Comments: GENERAL: Patient is well-developed and well-nourished. Patient is nontoxic and well- hydrated and is in no acute distress. ENT: Neck is soft and supple. No significant lymphadenopathy is noted. Oropharynx is clear. EYES: The sclera were anicteric and conjunctiva were pink and moist. Extraocular movements were intact and pupils were equal round and reactive to light. Eyelids were unremarkable. PULMONARY: Unlabored respirations. Good breath sounds bilaterally. No audible rales rhonchi or wheezing was noted. CARDIOVASCULAR: There is a regular rate and rhythm without any murmurs gallops or rubs. ABDOMEN: Soft and nontender with normal bowel sounds. SKIN: Skin is clear with no lesions or rashes and otherwise unremarkable. GENITALIA: Patient has fresh blood coming out of the orifice of his meatus NEUROLOGIC: Patient is alert and oriented x3. Cranial nerves II through XII are grossly intact. Motor and sensory are also intact. Normal speech, volume and content. Symmetrical smile. MUSCULOSKELETAL: Normal extremities with adequate strength and full range of motion. No lower extremity swelling or edema. No calf tenderness. LYMPHATICS: No significant lymphadenopathy is noted PSYCHIATRIC: Normal psychiatric evaluation. Limitations: physical limitation Course Vital Signs 11/21/17 11/21/17 19:13 20:41 Temperature 97.7 F Pulse Rate 52 L 65 Respiratory 18 16 Rate Blood Pressure 120/87 114/66 O2 Sat by Pulse 95 98 Oximetry Medical Decision Making - Medical Decision Making Patient's urine showed a lot of red and white cells I gave the patient a shot of Rocephin in the emergency department sent him home on antibiotics to follow- up with urology. - Lab Data Result diagrams: 11/21/17 20:02 11/21/17 20:02 Lab Results 11/21/17 11/21/17 11/21/17 Range/Units 19:48 20:02 20:02 WBC 3.5 L (3.8-10.6) k/uL RBC 4.65 (4.30-5.90) m/uL Hgb 12.6 L (13.0-17.5) gm/dL Hct 40.6 (39.0-53.0) % MCV 87.2 (80.0-100.0) fL MCH 27.0 (25.0-35.0) pg MCHC 31.0 (31.0-37.0) g/dL RDW 16.0 H (11.5-15.5) % Plt Count 164 (150-450) k/uL Neutrophils % 68 % Lymphocytes % 19 % Monocytes % 7 % Eosinophils % 3 % Basophils % 1 % Neutrophils # 2.4 (1.3-7.7) k/uL Lymphocytes # 0.6 L (1.0-4.8) k/uL Monocytes # 0.2 (0-1.0) k/uL Eosinophils # 0.1 (0-0.7) k/uL Basophils # 0.0 (0-0.2) k/uL Hypochromasia Marked Anisocytosis Slight PT (9.0-12.0) sec INR (<1.2) APTT (22.0-30.0) sec Sodium 139 (137-145) mmol/L Potassium 4.8 (3.5-5.1) mmol/L Chloride 110 H (98-107) mmol/L Carbon Dioxide 20 L (22-30) mmol/L Anion Gap 9 mmol/L BUN 31 H (9-20) mg/dL Creatinine 1.00 (0.66-1.25) mg/dL Est GFR (CKD-EPI)AfAm 79 (>60 ml/min/1.73 sqM) Est GFR (CKD-EPI)NonAf 68 (>60 ml/min/1.73 sqM) Glucose 114 H (74-99) mg/dL Calcium 8.9 (8.4-10.2) mg/dL Total Bilirubin 0.9 (0.2-1.3) mg/dL AST 25 (17-59) U/L ALT 23 (21-72) U/L Alkaline Phosphatase 48 (38-126) U/L Total Protein 6.9 (6.3-8.2) g/dL Albumin 4.1 (3.5-5.0) g/dL Urine Color Red Urine Appearance Bloody (Clear) Urine RBC >182 H (0-5) /hpf Urine WBC >182 H (0-5) /hpf Urine Bacteria Rare H (None) /hpf 11/21/17 Range/Units 20:02 WBC (3.8-10.6) k/uL RBC (4.30-5.90) m/uL Hgb (13.0-17.5) gm/dL Hct (39.0-53.0) % MCV (80.0-100.0) fL MCH (25.0-35.0) pg MCHC (31.0-37.0) g/dL RDW (11.5-15.5) % Plt Count (150-450) k/uL Neutrophils % % Lymphocytes % % Monocytes % % Eosinophils % % Basophils % % Neutrophils # (1.3-7.7) k/uL Lymphocytes # (1.0-4.8) k/uL Monocytes # (0-1.0) k/uL Eosinophils # (0-0.7) k/uL Basophils # (0-0.2) k/uL Hypochromasia Anisocytosis PT 22.9 H (9.0-12.0) sec INR 2.5 H (<1.2) APTT 29.2 (22.0-30.0) sec Sodium (137-145) mmol/L Potassium (3.5-5.1) mmol/L Chloride (98-107) mmol/L Carbon Dioxide (22-30) mmol/L Anion Gap mmol/L BUN (9-20) mg/dL Creatinine (0.66-1.25) mg/dL Est GFR (CKD-EPI)AfAm (>60 ml/min/1.73 sqM) Est GFR (CKD-EPI)NonAf (>60 ml/min/1.73 sqM) Glucose (74-99) mg/dL Calcium (8.4-10.2) mg/dL Total Bilirubin (0.2-1.3) mg/dL AST (17-59) U/L ALT (21-72) U/L Alkaline Phosphatase (38-126) U/L Total Protein (6.3-8.2) g/dL Albumin (3.5-5.0) g/dL Urine Color Urine Appearance (Clear) Urine RBC (0-5) /hpf Urine WBC (0-5) /hpf Urine Bacteria (None) /hpf Disposition Clinical Impression: Hematuria, Urinary tract infection Condition: Good Instructions: Urinary Tract Infection in Men (ED), Hematuria (ED) Prescriptions: Sulfamethox-Tmp 800-160Mg [Bactrim DS 800-160 mg] 1 each PO Q12HR #14 tab Referrals: Vicki Scruggs MD [Primary Care Provider] - 1-2 days Time of Disposition: 20:50
[2017-11-21 20:12] LABS: Bacteria,Urine Rare /hpf; RBC,Urine >182 /hpf (0-5); WBC,Urine >182 /hpf (0-5)
[2017-11-21 20:13] LABS: Appearance,Urine Bloody (Clear); Color,Urine Red
[2017-11-21 20:21] LABS: Anisocytosis Slight; Basophils % (A) 1 %; Eosinophils # (A) 0.1 k/uL (0-0.7); Eosinophils % (A) 3 %; HCT 40.6 % (39.0-53.0); HGB 12.6 gm/dL (13.0-17.5); Hypochromasia Marked; Lymphocytes # (A) 0.6 k/uL (1.0-4.8); Lymphocytes % (A) 19 %; MCV 87.2 fL (80.0-100.0); Mean Platelet Volume 6.8; Monocytes # (A) 0.2 k/uL (0-1.0); Monocytes % (A) 7 %; Neutrophils # (A) 2.4 k/uL (1.3-7.7); Neutrophils % (A) 68 %; Platelet Count 164 k/uL (150-450); RBC 4.65 m/uL (4.30-5.90); WBC 3.5 k/uL (3.8-10.6)
[2017-11-21 20:24] LABS: INR 2.5 (<1.2); Partial Thromboplastin Time 29.2 sec (22.0-30.0); Prothrombin Time 22.9 sec (9.0-12.0)
[2017-11-21 20:36] LABS: Albumin 4.1 g/dL (3.5-5.0); Calcium 8.9 mg/dL (8.4-10.2); Potassium 4.8 mmol/L (3.5-5.1); Total Bilirubin 0.9 mg/dL (0.2-1.3); Total Protein 6.9 g/dL (6.3-8.2)
[2017-11-21 20:46] VITALS: BP 114/66; PULSE 65; RESP 16
[2017-11-21] MEDS ORDERED: cefTRIAXone IN SWFI 1,000 MG/10 ML SYRINGE IVP ONE (21:00)
== END 2017-11-21 21:11 | disposition home or self-care (01) ==
LOC: EC 19:02
DX: N39.0 Urinary tract infection, site not specified (principal); K21.9 Gastro-esophageal reflux disease without esophagitis; Z95.5 Presence of coronary angioplasty implant and graft; Z79.899 Other long term (current) drug therapy; Z88.6 Allergy status to analgesic agent
CPT/HCPCS: 51798; 36415; 80053; 85025; 85610; 85730; 81001; 99283; 96374; J0696

== ENCOUNTER → 2018-02-06 | Outpatient (CLI) | payer MEDICARE, BC ==
[2018-02-06 07:41] LABS: Appearance,Urine Clear (Clear); Bilirubin,Urine Negative (Negative); Blood,Urine Small (Negative); Color,Urine Yellow; Glucose,Urine (UA) Negative (Negative); Ketones,Urine Negative (Negative); Leukocyte Esterase,Urine Negative (Negative); Nitrite,Urine Negative (Negative); Protein,Urine Negative (Negative); RBC,Urine 36 /hpf (0-5); Specific Gravity,Urine 1.018 (1.001-1.035); Squamous Epithelial Cell,Urine <1 /hpf (0-4); Urobilinogen,Urine <2.0 mg/dL (<2.0); WBC,Urine 2 /hpf (0-5)
[2018-02-06 07:46] LABS: Anisocytosis Slight; Basophils # (A) 0.1 k/uL (0-0.2); Basophils % (A) 1 %; Eosinophils # (A) 0.2 k/uL (0-0.7); Eosinophils % (A) 4 %; HCT 39.5 % (39.0-53.0); HGB 12.1 gm/dL (13.0-17.5); Hypochromasia Marked; Lymphocytes # (A) 0.9 k/uL (1.0-4.8); Lymphocytes % (A) 21 %; MCH 26.4 pg (25.0-35.0); MCHC 30.6 g/dL (31.0-37.0); MCV 86.3 fL (80.0-100.0); Mean Platelet Volume 7.2; Monocytes # (A) 0.4 k/uL (0-1.0); Monocytes % (A) 9 %; Neutrophils # (A) 2.6 k/uL (1.3-7.7); Neutrophils % (A) 62 %; Platelet Count 171 k/uL (150-450); RBC 4.58 m/uL (4.30-5.90); RDW 16.3 % (11.5-15.5); WBC 4.2 k/uL (3.8-10.6)
[2018-02-06 08:05] LABS: Albumin 3.7 g/dL (3.5-5.0); Potassium 4.6 mmol/L (3.5-5.1); Total Bilirubin 1.1 mg/dL (0.2-1.3); Total Protein 6.7 g/dL (6.3-8.2)
[2018-02-06 08:20] LABS: T4, Free (Free Thyroxine) 1.11 ng/dL (0.78-2.19)
== END | disposition home or self-care (01) ==
LOC: LABWHC1 06:51
PROVIDERS: ATTEND Internal Medicine
DX: Z00.00 Encounter for general adult medical examination without abnormal findings (principal); R10.9 Unspecified abdominal pain
CPT/HCPCS: 36415; 80053; 80061; 81001; 83690; 84439; 84443; 85025

== ENCOUNTER → 2018-02-08 | Outpatient (CLI) | payer MEDICARE, BC ==
--- NOTE | 2018-02-08 16:05 | US ---
EXAMINATION TYPE: US kidneys/renal and bladder DATE OF EXAM: 02/08/2018 COMPARISON: CT's and US CLINICAL HISTORY: L Flank pain R10.9, R31.9 Hematuria. EXAM MEASUREMENTS: Right Kidney: 11.6 x 5.9 x 5.2 cm Left Kidney: 11.2 x 5.7 x 5.4 cm Right Kidney: small peripelvic cyst Left Kidney: at least two peripelvic cysts seen Bladder: not well distended Bilateral Jets seen: Yes prominent prostate noted There is no evidence for hydronephrosis at this point in time. No nephrolithiasis is seen. No randall s are identified. The urinary bladder is anechoic. Bilateral ureteral jets are seen. IMPRESSION: No hydronephrosis or nephrolithiasis. Bilateral renal sinus cysts, left greater than right are redemo nstrated. These are similar to the exam of 2012.
== END | disposition home or self-care (01) ==
LOC: RADUSWWP 15:27
PROVIDERS: ATTEND Internal Medicine
DX: N28.1 Cyst of kidney, acquired (principal); Z88.8 Allergy status to other drugs, medicaments and biological substances; Z88.6 Allergy status to analgesic agent
CPT/HCPCS: 76770

== ENCOUNTER 2018-10-22 15:25 | Emergency (ER) | payer MEDICARE, BC ==
--- NOTE | 2018-10-22 15:52 | ED ---
General Adult HPI - General Chief complaint: Urogenital Stated complaint: Blood in urine Time Seen by Provider: 10/22/18 15:51 Source: patient, RN notes reviewed Mode of arrival: ambulatory Limitations: no limitations - History of Present Illness Initial comments: Margarito is an 88-year-old male with a past medical history of DVT, PE, GERD, hyperlipidemia, stent placement who presents to the emergency department for a chief complaint of hematuria 3 hours. Patient states this came on suddenly. Patient states he is currently taking Coumadin, Plavix, and aspirin. Patient denies bleeding from elsewhere. Denies any rectal bleeding melena or red a cheesy. Denies coughing up any blood or vomiting any blood. Patient is denying any back or abdominal pain. States he is symptom free except for the hematuria. States this has happened before a few years ago and he was diagnosed with urinary tract infection. States this was treated and bleeding resolved. Patient denies any difficulty urinating. Does admit to passing some clots.Patient has no other complaints at this time including shortness of breath, chest pain, abdominal pain, nausea or vomiting, headache, or visual changes. - Related Data Home Medications Medication Instructions Recorded Confirmed Finasteride [Proscar] 5 mg PO DAILY 12/19/16 10/22/18 Lansoprazole [Prevacid] 30 mg PO DAILY 12/19/16 10/22/18 Tamsulosin HCl [Flomax] 0.4 mg PO DAILY 12/19/16 10/22/18 Furosemide [Lasix] 40 mg PO DAILY 10/22/18 10/22/18 Gemfibrozil [Lopid] 600 mg PO DAILY 10/22/18 10/22/18 Previous Rx's Medication Instructions Recorded Aspirin 81 mg PO DAILY #90 chewable 12/25/16 Clopidogrel [Plavix] 75 mg PO DAILY #90 tablet 12/25/16 Metoprolol Tartrate 25 mg PO BID #180 tab 12/25/16 Warfarin Sodium [Coumadin] 5 mg PO DAILY@1800 #30 tablet 12/25/16 Cephalexin [Keflex] 500 mg PO TID 7 Days cap 10/22/18 Allergies Allergy/AdvReac Type Severity Reaction Status Date / Time aspirin AdvReac Nausea Verified 10/22/18 15:56 Review of Systems ROS Statement: Those systems with pertinent positive or pertinent negative responses have been documented in the HPI. ROS Other: All systems not noted in ROS Statement are negative. Past Medical History Past Medical History: Deep Vein Thrombosis (DVT), GERD/Reflux, Hyperlipidemia, Pulmonary Embolus (PE) Additional Past Medical History / Comment(s): HX of DVT leg & PE 2004 History of Any Multi-Drug Resistant Organisms: None Reported Past Surgical History: Appendectomy, Heart Catheterization With Stent, Hernia Repair, Prostate Surgery Additional Past Surgical History / Comment(s): Hernia repair x4; Colonoscopy Past Anesthesia/Blood Transfusion Reactions: No Reported Reaction Past Psychological History: No Psychological Hx Reported Smoking Status: Never smoker Past Alcohol Use History: None Reported Past Drug Use History: None Reported - Past Family History Mother Family Medical History: No Reported History General Exam Limitations: no limitations General appearance: alert, in no apparent distress Head exam: Present: atraumatic, normocephalic, normal inspection Eye exam: Present: normal appearance, PERRL, EOMI. Absent: scleral icterus, conjunctival injection, periorbital swelling ENT exam: Present: normal exam, mucous membranes moist Neck exam: Present: normal inspection, full ROM. Absent: tenderness, meningismus, lymphadenopathy Respiratory exam: Present: normal lung sounds bilaterally. Absent: respiratory distress, wheezes, rales, rhonchi, stridor Cardiovascular Exam: Present: regular rate, normal rhythm, normal heart sounds. Absent: systolic murmur, diastolic murmur, rubs, gallop, clicks GI/Abdominal exam: Present: soft, normal bowel sounds. Absent: distended, tenderness, guarding, rebound, rigid Back exam: Absent: CVA tenderness (R), CVA tenderness (L) Neurological exam: Present: alert, oriented X3, CN II-XII intact Psychiatric exam: Present: normal affect, normal mood Course Vital Signs 10/22/18 10/22/18 15:32 17:20 Temperature 97.5 F L 97.9 F Pulse Rate 86 83 Respiratory 18 16 Rate Blood Pressure 119/70 109/74 O2 Sat by Pulse 98 96 Oximetry Medical Decision Making - Medical Decision Making Margarito is an 88-year-old male currently on Plavix, Coumadin, and aspirin secondary to heart stent placement who presents to the emergency department for hematuria. States that this is ongoing for about 3 hours. Patient has had this in the past and is apparently secondary to a urinary tract infection. On presentation vitals are stable. On evaluation patient is well-appearing. He does not have any abdominal tenderness or CVA tenderness. Denies any difficulty urinating. Bladder scan revealed 28 mL of urine. CBC is unremarkable. Hemoglobin 12.2 which is chronic. INR is 2.7, likely secondary to Coumadin. CMP shows BUN of 32 with a creatinine of 0.95. This is likely related to dehydration. Urine does show greater than 182 red blood cells as well as 182 white blood cells. Patient given a gram of Rocephin. Discussed continuing Keflex with patient. Discussed following up with urology to rule out any other causes of hematuria such as tumor. This is followed up with primary care tomorrow morning to monitor hemoglobin as well as INR levels. This is returning here if has any other problems such as difficulty urinating or fevers. - Lab Data Result diagrams: 10/22/18 16:40 10/22/18 16:40 Lab Results 10/22/18 10/22/18 10/22/18 Range/Units 15:50 16:40 16:40 WBC 3.9 (3.8-10.6) k/uL RBC 4.58 (4.30-5.90) m/uL Hgb 12.2 L (13.0-17.5) gm/dL Hct 40.2 (39.0-53.0) % MCV 87.7 (80.0-100.0) fL MCH 26.6 (25.0-35.0) pg MCHC 30.3 L (31.0-37.0) g/dL RDW 16.1 H (11.5-15.5) % Plt Count 214 (150-450) k/uL Neutrophils % 68 % Lymphocytes % 17 % Monocytes % 7 % Eosinophils % 3 % Basophils % 0 % Neutrophils # 2.7 (1.3-7.7) k/uL Lymphocytes # 0.7 L (1.0-4.8) k/uL Monocytes # 0.3 (0-1.0) k/uL Eosinophils # 0.1 (0-0.7) k/uL Basophils # 0.0 (0-0.2) k/uL Hypochromasia Moderate Anisocytosis Slight PT (9.0-12.0) sec INR (<1.2) APTT (22.0-30.0) sec Sodium 142 (137-145) mmol/L Potassium 4.5 (3.5-5.1) mmol/L Chloride 110 H (98-107) mmol/L Carbon Dioxide 22 (22-30) mmol/L Anion Gap 10 mmol/L BUN 32 H (9-20) mg/dL Creatinine 0.95 (0.66-1.25) mg/dL Est GFR (CKD-EPI)AfAm 83 (>60 ml/min/1.73 sqM) Est GFR (CKD-EPI)NonAf 72 (>60 ml/min/1.73 sqM) Glucose 106 H (74-99) mg/dL Calcium 9.3 (8.4-10.2) mg/dL Total Bilirubin 1.0 (0.2-1.3) mg/dL AST 23 (17-59) U/L ALT 14 L (21-72) U/L Alkaline Phosphatase 80 (38-126) U/L Total Protein 7.3 (6.3-8.2) g/dL Albumin 4.2 (3.5-5.0) g/dL Urine Color Red Urine Appearance Bloody (Clear) Urine RBC >182 H (0-5) /hpf Urine WBC >182 H (0-5) /hpf 10/22/18 Range/Units 16:40 WBC (3.8-10.6) k/uL RBC (4.30-5.90) m/uL Hgb (13.0-17.5) gm/dL Hct (39.0-53.0) % MCV (80.0-100.0) fL MCH (25.0-35.0) pg MCHC (31.0-37.0) g/dL RDW (11.5-15.5) % Plt Count (150-450) k/uL Neutrophils % % Lymphocytes % % Monocytes % % Eosinophils % % Basophils % % Neutrophils # (1.3-7.7) k/uL Lymphocytes # (1.0-4.8) k/uL Monocytes # (0-1.0) k/uL Eosinophils # (0-0.7) k/uL Basophils # (0-0.2) k/uL Hypochromasia Anisocytosis PT 26.5 H (9.0-12.0) sec INR 2.7 H (<1.2) APTT 33.2 H (22.0-30.0) sec Sodium (137-145) mmol/L Potassium (3.5-5.1) mmol/L Chloride (98-107) mmol/L Carbon Dioxide (22-30) mmol/L Anion Gap mmol/L BUN (9-20) mg/dL Creatinine (0.66-1.25) mg/dL Est GFR (CKD-EPI)AfAm (>60 ml/min/1.73 sqM) Est GFR (CKD-EPI)NonAf (>60 ml/min/1.73 sqM) Glucose (74-99) mg/dL Calcium (8.4-10.2) mg/dL Total Bilirubin (0.2-1.3) mg/dL AST (17-59) U/L ALT (21-72) U/L Alkaline Phosphatase (38-126) U/L Total Protein (6.3-8.2) g/dL Albumin (3.5-5.0) g/dL Urine Color Urine Appearance (Clear) Urine RBC (0-5) /hpf Urine WBC (0-5) /hpf Disposition Clinical Impression: Urinary tract infection, Hematuria Disposition: HOME SELF-CARE Condition: Good Instructions (If sedation given, give patient instructions): Urinary Tract In fection in Men (ED), Hematuria (ED) Additional Instructions: Please take antibiotics starting tomorrow. Have prescription filled at any pharmacy. Drink plenty of fluids. Follow-up with primary care tomorrow. Follow up with urology as soon as possible. If you're having any difficulty urinating return to the emergency department. If you have any other worsening symptoms return to the nearest emergency department as well. Prescriptions: Cephalexin [Keflex] 500 mg PO TID 7 Days cap Is patient prescribed a controlled substance at d/c from ED?: No Referrals: Vicki Scruggs MD [Primary Care Provider] - 1-2 days Israel Robertson MD [STAFF PHYSICIAN] - 1-2 days Time of Disposition: 17:27
[2018-10-22 16:07] LABS: Appearance,Urine Bloody (Clear); Color,Urine Red; RBC,Urine >182 /hpf (0-5); WBC,Urine >182 /hpf (0-5)
[2018-10-22] MEDS ORDERED: SODIUM CHLORIDE 0.9% 500 ML 500 ML IV STA (16:48)
[2018-10-22 16:56] LABS: Anisocytosis Slight; Basophils % (A) 0 %; Eosinophils # (A) 0.1 k/uL (0-0.7); Eosinophils % (A) 3 %; HCT 40.2 % (39.0-53.0); HGB 12.2 gm/dL (13.0-17.5); Hypochromasia Moderate; Lymphocytes # (A) 0.7 k/uL (1.0-4.8); Lymphocytes % (A) 17 %; MCH 26.6 pg (25.0-35.0); MCHC 30.3 g/dL (31.0-37.0); MCV 87.7 fL (80.0-100.0); Mean Platelet Volume 7.7; Monocytes # (A) 0.3 k/uL (0-1.0); Monocytes % (A) 7 %; Neutrophils # (A) 2.7 k/uL (1.3-7.7); Neutrophils % (A) 68 %; Platelet Count 214 k/uL (150-450); RBC 4.58 m/uL (4.30-5.90); RDW 16.1 % (11.5-15.5); WBC 3.9 k/uL (3.8-10.6)
[2018-10-22] MEDS ORDERED: cefTRIAXone IN SWFI 1,000 MG/10 ML SYRINGE IVP STA (17:01)
[2018-10-22 17:02] LABS: Albumin 4.2 g/dL (3.5-5.0); Calcium 9.3 mg/dL (8.4-10.2); Potassium 4.5 mmol/L (3.5-5.1); Total Protein 7.3 g/dL (6.3-8.2)
[2018-10-22 17:04] LABS: INR 2.7 (<1.2); Partial Thromboplastin Time 33.2 sec (22.0-30.0); Prothrombin Time 26.5 sec (9.0-12.0)
[2018-10-22 17:21] VITALS: BP 109/74; PULSE 83; RESP 16; TEMP 97.9
[2018-10-22] MEDS ORDERED: CEPHALEXIN 500MG STARTER PACK 4 CAP BTL PO STA (17:26)
== END 2018-10-22 17:45 | disposition home or self-care (01) ==
LOC: EC 15:25
DX: N39.0 Urinary tract infection, site not specified (principal); E78.5 Hyperlipidemia, unspecified; K21.9 Gastro-esophageal reflux disease without esophagitis; Z88.6 Allergy status to analgesic agent; Z79.01 Long term (current) use of anticoagulants; Z79.02 Long term (current) use of antithrombotics/antiplatelets; Z79.82 Long term (current) use of aspirin; Z79.899 Other long term (current) drug therapy; Z86.711 Personal history of pulmonary embolism; Z86.718 Personal history of other venous thrombosis and embolism; Z95.5 Presence of coronary angioplasty implant and graft; Z90.49 Acquired absence of other specified parts of digestive tract; Z98.890 Other specified postprocedural states
CPT/HCPCS: 36415; 80053; 85025; 85610; 85730; 81001; 87086; 99284; 96374; J0696

== ENCOUNTER → 2018-12-12 | Outpatient (CLI) | payer MEDICARE, BC ==
[2018-12-12 10:23] LABS: Anisocytosis Slight; HCT 35.8 % (39.0-53.0); HGB 10.7 gm/dL (13.0-17.5); Hypochromasia Marked; MCH 25.7 pg (25.0-35.0); MCHC 29.8 g/dL (31.0-37.0); MCV 86.4 fL (80.0-100.0); Mean Platelet Volume 7.7; Platelet Count 180 k/uL (150-450); Poikilocytosis Slight; RBC 4.14 m/uL (4.30-5.90); RDW 16.4 % (11.5-15.5); WBC 4.5 k/uL (3.8-10.6)
--- NOTE | 2018-12-12 15:13 | XR ---
EXAMINATION TYPE: XR chest 2V DATE OF EXAM: 12/12/2018 COMPARISON: Prior chest x-ray 12/05/[address] 04/07/2013 HISTORY: I 50.33 and shortness of breath TECHNIQUE: Frontal and lateral views of the chest are obtained at 3 images. FINDINGS: There is no focal air space opacity, pleural effusion, or pneumothorax seen. The cardiac silhouette size is stable. Some prominent interstitial markings present at the lung bases. The osseou s structures are intact. The aorta is dense. IMPRESSION: Interstitial lung disease.
[2018-12-12 17:41] LABS: African American GFR (CKD) 78.1 (60.0-200.0); Anion Gap 8.8 mmol/L (4.00-12.00); Carbon Dioxide 25.2 mmol/L (21.6-31.8); Potassium 4.2 mmol/L (3.5-5.5)
== END | disposition home or self-care (01) ==
LOC: LABWHC1 09:54
PROVIDERS: ATTEND Internal Medicine Cardiovascular Disease
DX: J84.9 Interstitial pulmonary disease, unspecified (principal); I50.33 Acute on chronic diastolic (congestive) heart failure
CPT/HCPCS: 36415; 71046; 80051; 82565; 83880; 84520; 85027

== ENCOUNTER → 2018-12-16 | Outpatient (CLI) | payer MEDICARE, BC ==
--- NOTE | 2018-12-16 08:35 | US ---
EXAMINATION TYPE: US abdomen complete DATE OF EXAM: 12/16/2018 COMPARISON: US 02/08/18, CT 04/07/13 CLINICAL HISTORY: R14.0 Abdominal distention, gaseous. EXAM MEASUREMENTS: Liver Length: 16.7 cm Gallbladder Wall: 0.2 cm CBD: 0.6 cm Spleen: 10.5 cm Right Kidney: 12.5 x 6.3 x5.9 cm Left Kidney: 12.5 x 5.9 x 5.7 cm Pancreas: Mostly Obscured by bowel gas. Pancreatic duct is upper limits of normal in size. Liver: Multiple liver cysts. Largest = 2.1 x 2.3 x 1.8 cm Gallbladder: Large size = 10.7 x 5.0 x 4.3 cm Evidence for sonographic Bates's sign: No CBD: Large in size Spleen: Partially Obscured by overlying bowel gas Right Kidney: Multiple renal cysts: Upper = 1.8 x 1.3 x 1.1 cm Lower = 1.1 x 0.9 x 0.8 cm Left Kidney: Multiple renal cysts: Lower = 0.9 x 0.7 cm Lower = 1.6 x 1.1 x 1.6 cm Upper = 2.2 x 1.7 x 1.4 cm Upper IVC: wnl Abd Aorta: wnl The liver is heterogenous. The intrahepatic portion of the IVC and proximal abdominal aorta are withi n normal limits. There is no evidence of cholelithiasis. Common bile duct is unremarkable. The vis ualized portions of the pancreas are homogenous. The spleen is unremarkable. Kidneys are symmetric and free of hydronephrosis. No suspicious renal lesions are seen. Slight cortical renal thinning lawrence aterally. IMPRESSION: 1. No sonographic evidence of cholelithiasis nor acute cholecystitis in this patient with abdominal b loating and distention. 2. Multiple simple appearing hepatic cysts and benign renal sinus cysts are present. 3. Pancreatic duct appears upper limits of normal in size. If there is further concern MRCP could be considered.
== END | disposition home or self-care (01) ==
LOC: RADUSWWP 06:55
PROVIDERS: ATTEND Internal Medicine Gastroenterology
DX: N28.1 Cyst of kidney, acquired (principal); K76.89 Other specified diseases of liver
CPT/HCPCS: 76700

== ENCOUNTER → 2019-01-16 | Outpatient (CLI) | payer MEDICARE, BC ==
[2019-01-16 16:41] LABS: African American GFR (CKD) 62.2 (60.0-200.0); Anion Gap 8.1 mmol/L (4.00-12.00); Carbon Dioxide 28.9 mmol/L (21.6-31.8); Potassium 3.9 mmol/L (3.5-5.5)
== END | disposition home or self-care (01) ==
LOC: LABWHC1 07:12
PROVIDERS: ATTEND Internal Medicine Cardiovascular Disease
DX: I50.22 Chronic systolic (congestive) heart failure (principal); I50.84 End stage heart failure
CPT/HCPCS: 36415; 80051; 82565; 84520

== ENCOUNTER → 2019-02-03 | Outpatient (CLI) | payer MEDICARE, BC ==
[2019-02-03 18:02] LABS: African American GFR (CKD) 69.1 (60.0-200.0); Potassium 3.5 mmol/L (3.5-5.5)
== END | disposition home or self-care (01) ==
LOC: LABWHC1 08:00
PROVIDERS: ATTEND Internal Medicine Cardiovascular Disease
DX: I50.22 Chronic systolic (congestive) heart failure (principal)
CPT/HCPCS: 36415; 80051; 82565; 84520

== ENCOUNTER → 2019-03-04 | Outpatient (CLI) | payer MEDICARE, BC ==
[2019-03-04 17:00] LABS: African American GFR (CKD) 69.1 (60.0-200.0); Anion Gap 10.4 mmol/L (4.00-12.00); Carbon Dioxide 23.6 mmol/L (21.6-31.8); Potassium 3.9 mmol/L (3.5-5.5)
== END | disposition home or self-care (01) ==
LOC: LABWHC1 11:23
PROVIDERS: ATTEND Internal Medicine Cardiovascular Disease
DX: I50.22 Chronic systolic (congestive) heart failure (principal)
CPT/HCPCS: 36415; 80051; 82565; 84520

== ENCOUNTER → 2019-04-01 | Outpatient (CLI) | payer MEDICARE, BC ==
[2019-04-01 15:46] LABS: African American GFR (CKD) 62.2 (60.0-200.0); Anion Gap 6.4 mmol/L (4.00-12.00); Carbon Dioxide 30.6 mmol/L (21.6-31.8); Non-African American GFR(CKD) 53.7 (60.0-200.0); Potassium 3.7 mmol/L (3.5-5.5)
== END | disposition home or self-care (01) ==
LOC: LABWHC1 10:37
PROVIDERS: ATTEND Internal Medicine Cardiovascular Disease
DX: I50.22 Chronic systolic (congestive) heart failure (principal); I50.84 End stage heart failure
CPT/HCPCS: 36415; 80051; 82565; 84520

== ENCOUNTER → 2019-05-13 | Outpatient (CLI) | payer MEDICARE, BC ==
[2019-05-13 17:12] LABS: African American GFR (CKD) 77.5 (60.0-200.0); Anion Gap 7.9 mmol/L (4.00-12.00); Carbon Dioxide 27.1 mmol/L (21.6-31.8); Non-African American GFR(CKD) 66.9 (60.0-200.0)
== END | disposition home or self-care (01) ==
LOC: LABWHC1 10:41
PROVIDERS: ATTEND Internal Medicine Cardiovascular Disease
DX: I50.22 Chronic systolic (congestive) heart failure (principal); I50.84 End stage heart failure
CPT/HCPCS: 36415; 80051; 82565; 84520

== ENCOUNTER → 2019-08-29 | Outpatient (CLI) | payer MEDICARE, BC ==
--- NOTE | 2019-08-29 12:33 | NM ---
EXAMINATION TYPE: NM bone scan whole body DATE OF EXAM: 08/29/2019 COMPARISON: Outside lumbar spine radiographs dated 08/27/2019 HISTORY: Low back pain, known compression deformity of L3, determine acuity. Delayed whole-body scanning was performed following the injection of 22 mCi Tc 99m MDP. Images acqui red 3 hours post injection. FINDINGS: Focal abnormal radiotracer uptake is seen at the L3 level. Mild symmetric uptake is seen in the shoul ders, sacroiliac joints, wrists, and hips as well as asymmetric uptake in the right ankle are all lik rickey on the basis of arthropathy. More focal uptake at the left sternoclavicular joint also likely rel ates arthropathy. IMPRESSION: Focal radiotracer uptake is confirmed in the L3 vertebral body relating to the acute to subacute comp ression deformity. Degenerative changes of the axial and appendicular skeleton are also seen with sli ghtly asymmetric uptake in the left sternoclavicular joint. This could be further assessed with radio graphs or CT if clinically indicated.
== END | disposition home or self-care (01) ==
LOC: RADNMMAIN 08:01
PROVIDERS: ATTEND Physical Medicine & Rehabilitation
DX: M19.90 Unspecified osteoarthritis, unspecified site (principal); E78.5 Hyperlipidemia, unspecified; I51.9 Heart disease, unspecified; K21.9 Gastro-esophageal reflux disease without esophagitis; Z79.01 Long term (current) use of anticoagulants; Z79.02 Long term (current) use of antithrombotics/antiplatelets; Z95.5 Presence of coronary angioplasty implant and graft
CPT/HCPCS: 78306; A9503

== ENCOUNTER → 2019-09-26 | Outpatient (CLI) | payer MEDICARE, BC ==
[2019-09-26 09:19] LABS: Anisocytosis Slight; Basophils % (A) 1 %; Eosinophils # (A) 0.3 k/uL (0-0.7); Eosinophils % (A) 6 %; HCT 42.5 % (39.0-53.0); HGB 12.6 gm/dL (13.0-17.5); Hypochromasia Marked; Lymphocytes # (A) 0.9 k/uL (1.0-4.8); Lymphocytes % (A) 16 %; MCH 25.7 pg (25.0-35.0); MCHC 29.6 g/dL (31.0-37.0); MCV 86.7 fL (80.0-100.0); Mean Platelet Volume 7.2; Monocytes # (A) 0.4 k/uL (0-1.0); Monocytes % (A) 8 %; Neutrophils # (A) 3.4 k/uL (1.3-7.7); Neutrophils % (A) 66 %; Platelet Count 166 k/uL (150-450); RDW 17.7 % (11.5-15.5); WBC 5.2 k/uL (3.8-10.6)
[2019-09-26 16:07] LABS: African American GFR (CKD) 69.1 (60.0-200.0); Albumin 3.9 g/dL (3.80-4.90); Albumin/Globulin Ratio 1.63 (1.60-3.17); Anion Gap 7.3 mmol/L (4.00-12.00); BUN/Creat Ratio 26.36 Ratio (12.00-20.00); Carbon Dioxide 29.7 mmol/L (21.6-31.8); Chol/HDL Ratio 4.34; Globulin 2.4 g/dL (1.6-3.3); LDL Cholesterol,Calculated 89.4 mg/dL (0.0-131.0); Non-African American GFR(CKD) 59.6 (60.0-200.0); Potassium 4.5 mmol/L (3.5-5.5); Total Bilirubin 1.5 mg/dL (0.2-1.2); Total Protein 6.3 g/dL (6.2-8.2); VLDL Calculation 27.6 mg/dL (5.00-40.00)
[2019-09-26 16:16] LABS: T4, Free (Free Thyroxine) 1.2 ng/dL (0.80-1.80)
== END | disposition home or self-care (01) ==
LOC: LABWHC1 08:19
PROVIDERS: ATTEND Internal Medicine
DX: E78.5 Hyperlipidemia, unspecified (principal); I27.81 Cor pulmonale (chronic); I10 Essential (primary) hypertension
CPT/HCPCS: 36415; 80053; 80061; 84439; 84443; 85025

== ENCOUNTER → 2019-12-08 | Outpatient (CLI) | payer MEDICARE, BC ==
[2019-12-08 15:49] LABS: African American GFR (CKD) 69.1 (60.0-200.0); Anion Gap 7.1 mmol/L (4.00-12.00); Carbon Dioxide 27.9 mmol/L (21.6-31.8); Non-African American GFR(CKD) 59.6 (60.0-200.0)
== END | disposition home or self-care (01) ==
LOC: LABWHC1 07:27
PROVIDERS: ATTEND Internal Medicine Cardiovascular Disease
DX: I34.0 Nonrheumatic mitral (valve) insufficiency (principal); I50.22 Chronic systolic (congestive) heart failure; I25.10 Atherosclerotic heart disease of native coronary artery without angina pectoris
CPT/HCPCS: 36415; 80051; 82565; 84520

== ENCOUNTER → 2020-01-02 | Outpatient (CLI) | payer MEDICARE, BC ==
--- NOTE | 2020-01-02 11:22 | MM ---
Reason for exam: clinical finding. Indicated problem(s): lump or thickening in the left breast. Physical Findings: Nurse did not find any significant physical abnormalities on exam. MG 3D Diag Mammo W/Cad ELEONORA Bilateral CC and MLO view(s) were taken. There are scattered fibroglandular densities. Symmetric retroareolar flame shaped densities consistent with gynecomastia. ASSESSMENT: Benign, BI-RAD 2 RECOMMENDATION: Clinical management of both breasts.
--- NOTE | 2020-01-02 11:24 | USB ---
Reason for exam: clinical finding. US Breast LT Left limited breast ultrasound including focal area of concern, retroareolar and axilla demonstrates a 3.1 x 1.0 x 1.0cm hypoechoic lesion at the posterior nipple. Right limited breast ultrasound including focal area of concern, retroareolar and axilla demonstrates a 2.8 x 1.2 x 1.4cm hypoechoic lesion at the posterior nipple. These results were verbally communicated with the patient and result sheet given to the patient on 01/02/20. ASSESSMENT: Benign, BI-RAD 2 RECOMMENDATION: Clinical management of both breasts. Manage patient on a clinical basis.
== END | disposition home or self-care (01) ==
LOC: RADMAMWWP 09:45
PROVIDERS: ATTEND Internal Medicine
DX: N63.20 Unspecified lump in the left breast, unspecified quadrant (principal); N63.10 Unspecified lump in the right breast, unspecified quadrant
CPT/HCPCS: 77066; 76641; G0279; 77062

== ENCOUNTER → 2020-02-12 | Outpatient (CLI) | payer MEDICARE, BC ==
[2020-02-12 14:40] LABS: Chol/HDL Ratio 4.53; LDL Cholesterol,Calculated 90.8 mg/dL (0.0-131.0); VLDL Calculation 29.2 mg/dL (5.00-40.00)
== END | disposition home or self-care (01) ==
LOC: LABWHC1 08:01
PROVIDERS: ATTEND Internal Medicine Cardiovascular Disease
DX: E78.2 Mixed hyperlipidemia (principal)
CPT/HCPCS: 36415; 80061; 84450; 84460

== ENCOUNTER → 2020-06-10 | Outpatient (CLI) | payer MEDICARE, BC ==
[2020-06-10 16:13] LABS: Anion Gap 8.5 mmol/L (4.00-12.00); Calcium 9.2 mg/dL (8.7-10.3); Carbon Dioxide 25.5 mmol/L (21.6-31.8); Non-African American GFR(CKD) 66.4 (60.0-200.0); Potassium 4.6 mmol/L (3.5-5.5)
== END | disposition home or self-care (01) ==
LOC: LABWHC1 09:24
PROVIDERS: ATTEND Internal Medicine Cardiovascular Disease
DX: I50.22 Chronic systolic (congestive) heart failure (principal)
CPT/HCPCS: 36415; 80048

== ENCOUNTER → 2020-08-12 | Outpatient (CLI) | payer MEDICARE, BC ==
[2020-08-13 01:34] LABS: Anion Gap 7.5 mmol/L (4.00-12.00); Calcium 9.1 mg/dL (8.7-10.3); Carbon Dioxide 28.5 mmol/L (21.6-31.8); Non-African American GFR(CKD) 66.4 (60.0-200.0); Potassium 4.2 mmol/L (3.5-5.5)
== END | disposition home or self-care (01) ==
LOC: LABWHC1 09:26
PROVIDERS: ATTEND Internal Medicine Cardiovascular Disease
DX: I50.22 Chronic systolic (congestive) heart failure (principal)
CPT/HCPCS: 36415; 80048; 83880

== ENCOUNTER → 2020-10-14 | Outpatient (CLI) | payer MEDICARE, BC ==
[2020-10-14 17:14] LABS: African American GFR (CKD) 68.6 (60.0-200.0); Anion Gap 11.3 mmol/L (4.00-12.00); Carbon Dioxide 27.7 mmol/L (21.6-31.8); Non-African American GFR(CKD) 59.2 (60.0-200.0); Potassium 3.6 mmol/L (3.5-5.5)
== END | disposition home or self-care (01) ==
LOC: LABWHC1 08:36
PROVIDERS: ATTEND Internal Medicine Cardiovascular Disease
DX: I50.22 Chronic systolic (congestive) heart failure (principal)
CPT/HCPCS: 36415; 80051; 82565; 84520